=== PATIENT | female | born 1975 ===

== ENCOUNTER → 2023-10-31 | Day surgery (SDC) | payer OTHER ==
[2023-10-25 12:25] VITALS: BMI 38.3
[2023-10-31 11:54] VITALS: RESP 18; TEMP 98
[2023-10-31 12:28] VITALS: BP 155/88; PULSE 50
== END | disposition home or self-care (01) ==
LOC: JASU-ENDO 04:20
PROVIDERS: ATTEND Internal Medicine Gastroenterology
PROC: 0DJD8ZZ Inspection of Lower Intestinal Tract, Via Natural or Artificial Opening Endoscopic (ICD-10-PCS; principal; 2023-10-31 10:30)
DX: Z12.11 Encounter for screening for malignant neoplasm of colon (principal); K64.8 Other hemorrhoids; K57.30 Diverticulosis of large intestine without perforation or abscess without bleeding